=== PATIENT | female | born 1955 | race Native Hawaiian/Other Pacific Islander ===

== ENCOUNTER 2016-09-05 06:55 | Day surgery (SDC) | payer OTHER ==
[2016-09-05 07:39] VITALS: BMI 27.4
[2016-09-05] MEDS ORDERED: Propofol 10 mg/ml Inj (20 ML) ONE (08:56)
[2016-09-05] MEDS ORDERED: Midazolam 2 MG/2 ML VIAL ONE (08:56)
[2016-09-06 15:50] VITALS: O2SAT 100
[2016-09-06 15:53] VITALS: TEMP 96.4
[2016-09-06 15:54] VITALS: BP 125/54; PULSE 57; RESP 12
== END 2016-09-05 11:20 | disposition home or self-care (01) ==
LOC: C.ENDO 06:55
PROVIDERS: ATTEND Internal Medicine Gastroenterology
DX: Z12.11 Encounter for screening for malignant neoplasm of colon (principal); Z80.0 Family history of malignant neoplasm of digestive organs; K57.30 Diverticulosis of large intestine without perforation or abscess without bleeding; K64.8 Other hemorrhoids
CPT/HCPCS: 45378; J2250; J2704